=== PATIENT | female | born 1940 | race Caucasian/White ===

== ENCOUNTER → 2020-05-30 | Outpatient (CLI) | payer MEDICARE, OTHER ==
[~2020-05-30] MED LIST: NKHM; PRILOSEC20 MG PO
== END | disposition home or self-care (01) ==
LOC: COVID19 14:32
PROVIDERS: ATTEND Family Medicine
DX: Z20.822 Contact with and (suspected) exposure to COVID-19 (principal)

== ENCOUNTER → 2021-06-05 | Outpatient (CLI) | payer MEDICARE, OTHER | END | disposition home or self-care (01) | LOC: COVID19 17:08 | PROVIDERS: ATTEND Internal Medicine | DX: Z20.822 Contact with and (suspected) exposure to COVID-19 (principal) ==

== ENCOUNTER 2022-10-15 12:19 | Emergency (ER) | payer MEDICARE, OTHER ==
[~2022-10-15] VITALS: Wt 63.5 kg
== END 2022-10-15 15:58 | disposition home or self-care (01) ==
LOC: ED 12:19
DX: S22.32XA Fracture of one rib, left side, initial encounter for closed fracture (principal); Z91.018 Allergy to other foods; Z88.5 Allergy status to narcotic agent; Z91.011 Allergy to milk products; Z91.010 Allergy to peanuts; Z90.710 Acquired absence of both cervix and uterus; Z98.890 Other specified postprocedural states; W19.XXXA Unspecified fall, initial encounter; Y93.89 Activity, other specified; Y92.89 Other specified places as the place of occurrence of the external cause; Y99.8 Other external cause status

== ENCOUNTER 2023-06-14 15:35 | Emergency (ER) | payer MEDICARE, OTHER ==
[~2023-06-14] VITALS: Ht 162.5 cm; Wt 63.5 kg
[2023-06-14 17:00] LABS: BASO % 0.4 % (0.0-1.0); EOS # 0.3 10*3/uL (0.0-0.4); EOS % 3.7 % (1.0-4.0); HEMATOCRIT 40.6 % (37.0-47.0); LYMPH # 1.8 10*3/uL (1.3-4.4); LYMPH % 25.8 % (27.0-41.0); MEAN CELL VOLUME 85.3 fl (81.0-99.0); MEAN CORPUSCULAR HGB 27.5 pg (27.0-31.0); MEAN CORPUSCULAR HGB CONC 32.3 g/dl (33.0-37.0); MEAN PLATELET VOLUME 8.9 fl (9.6-12.3); MONO # 0.7 10*3/uL (0.1-1.0); MONO % 9.5 % (3.0-9.0); NEUT # 4.3 10*3/uL (2.3-7.9); NEUT % 60.2 % (47.0-73.0); PLATELET COUNT AUTOMATED 281 10*3/uL (130-400); RED BLOOD COUNT 4.76 10*6/uL (4.10-5.10); RED CELL DISTRI WIDTH 12.5 % (0-14.5); WHITE BLOOD COUNT 7.1 10*3/uL (4.8-10.8)
[2023-06-14 17:26] LABS: ALKALINE PHOSPHATASE 86 U/L (46-116); BUN 13 mg/dl (9-23); CHLORIDE 106 mmol/L (98-107); POTASSIUM 3.8 mmol/L (3.4-5.1); SGPT/ALT 8 U/L (5-49); TOTAL PROTEIN 6.6 gm/dL (6.0-8.0)
[2023-06-14] MEDS ORDERED: PROVENTIL HFA6.7 GM INH (18:11)
[2023-06-14] MEDS ORDERED: ZITHROMAX250 MG PO (18:11)
[2023-06-14] MEDS ORDERED: PREDNISONE50 MG PO (18:11)
[2023-06-14] MEDS ORDERED: OMNICEF300 MG PO (18:11)
== END 2023-06-14 18:35 | disposition home or self-care (01) ==
LOC: ED 15:35
PROVIDERS: Internal Medicine
DX: J18.9 Pneumonia, unspecified organism (principal); Z91.011 Allergy to milk products; Z79.899 Other long term (current) drug therapy; Z98.890 Other specified postprocedural states; Z90.711 Acquired absence of uterus with remaining cervical stump

== ENCOUNTER 2024-02-20 14:19 | Emergency (ER) | payer MEDICARE, OTHER ==
[~2024-02-20] VITALS: Ht 162.5 cm; Wt 65.4 kg
[~2024-02-20 14:19] MED LIST changes: +OMNICEF300 MG PO; +PREDNISONE50 MG PO; +PROVENTIL HFA6.7 GM INH; +ZITHROMAX250 MG PO
[2024-02-20] MEDS ORDERED: PREDNISONE20 M1 PO (14:57)
[2024-02-20] MEDS ORDERED: DEXAMETHASONE 4 MG TAB PO ONE (15:00)
== END 2024-02-20 14:59 | disposition home or self-care (01) ==
LOC: ED 14:19
DX: L25.9 Unspecified contact dermatitis, unspecified cause (principal); Z91.011 Allergy to milk products; Z90.710 Acquired absence of both cervix and uterus; Z98.890 Other specified postprocedural states

== ENCOUNTER 2024-07-06 12:16 | Emergency (ER) | payer MEDICARE, OTHER ==
[~2024-07-06] VITALS: Ht 162.5 cm; Wt 63.5 kg
[~2024-07-06 12:16] MED LIST changes: +PREDNISONE20 M1 PO
[2024-07-06] MEDS ORDERED: IBUPROFEN 600 MG TAB PO ONE (13:05)
== END 2024-07-06 15:31 | disposition home or self-care (01) ==
LOC: ED 12:16
DX: S43.402A Unspecified sprain of left shoulder joint, initial encounter (principal); K21.9 Gastro-esophageal reflux disease without esophagitis; Z91.011 Allergy to milk products; Z90.710 Acquired absence of both cervix and uterus; Z98.890 Other specified postprocedural states; W19.XXXA Unspecified fall, initial encounter; Y93.89 Activity, other specified; Y92.39 Other specified sports and athletic area as the place of occurrence of the external cause; Y99.8 Other external cause status